=== PATIENT | female | born 1965 | race Caucasian/White ===

== ENCOUNTER 2017-09-28 06:10 | Day surgery (SDC) | payer OTHER ==
[2017-09-28] MEDS ORDERED: GLYCOPYRROLATE 0.4 MG INJ (07:00)
[2017-09-28] MEDS ORDERED: PROPOFOL 20 ML (07:14)
[2017-09-28] MEDS ORDERED: LIDOCAINE 1% (MDV) 20 ML INJ (07:15)
[2017-09-28 07:16] LABS: ADD MAN DIFF? NO
[2017-09-28] MEDS ORDERED: FENTAnyl 50 MCG/ML VIAL (07:17)
[2017-09-28] MEDS ORDERED: CEFAZOLIN 1 GM INJ (07:17)
[2017-09-28] MEDS ORDERED: ONDANSETRON 4 MG INJ (07:21)
[2017-09-28 07:25] LABS: WHITE BLOOD COUNT 6.5 10^3/ul (4.8-10.8)
[2017-09-28 07:25] LABS: BASOPHILS % 0.3 % (0.0-2.0); EOSINOPHILS # 0.1 10^3/ul (0.0-0.5); EOSINOPHILS % 1.5 % (0.0-7.0); HEMATOCRIT 40.2 % (37.0-47.0); LYMPHOCYTES # 2.6 10^3/ul (0.8-2.9); LYMPHOCYTES % 40.5 % (15.0-51.0); MEAN CORPUSCULAR HEMOGLOBIN 32.1 pg (29.0-33.0); MEAN CORPUSCULAR HGB CONC 34.8 g/dl (32.0-37.0); MEAN CORPUSCULAR VOLUME 92.2 fl (82.0-101.0); MEAN PLATELET VOLUME 9.9 fl (7.4-10.4); MONOCYTE # 0.6 10^3/ul (0.3-0.9); MONOCYTES % 9.5 % (0.0-11.0); NEUTROPHIL # 3.1 10^3/ul (1.6-7.5); PLATELET COUNT 286 10^3/UL (140-415); RED BLOOD COUNT 4.36 10^6/ul (4.20-5.40); RED CELL DISTRIBUTION WIDTH 11.8 % (11.5-14.5)
[2017-09-28] MEDS ORDERED: ROCURONIUM 50 MG INJ (07:29)
[2017-09-28] MEDS ORDERED: ONDANSETRON 4 MG INJ IV (07:30)
[2017-09-28] MEDS ORDERED: HYDROmorphONE (0.2 MG/ML) 10ML SYG IV ×2 (07:30)
[2017-09-28] MEDS ORDERED: FENTAnyl 50 MCG/ML VIAL IV (07:30)
[2017-09-28 07:42] LABS: ALANINE AMINOTRANSFERASE 42 IU/L (13-69); ALBUMIN 4.1 g/dl (3.3-4.9); ALKALINE PHOSPHATASE 104 IU/L (42-121); ANION GAP 13 (8-16); ASPARTATE AMINO TRANSFERASE 28 IU/L (15-46); BILIRUBIN,INDIRECT 0.3 mg/dl (0-1.1); BILIRUBIN,TOTAL 0.3 mg/dl (0.2-1.3); CARBON DIOXIDE 29 mmol/L (21-31); CHLORIDE 103 mmol/L (97-110); GLUCOSE 95 mg/dl (70-220); TOTAL PROTEIN 7.5 g/dl (6.1-8.1)
[2017-09-28 07:44] LABS: BLOOD UREA NITROGEN 13 mg/dl (7-20); CALCIUM 9.4 mg/dl (8.4-10.2); CREATININE 0.63 mg/dl (0.44-1.00); POTASSIUM 4.1 mmol/L (3.5-5.1); SODIUM 141 mmol/L (135-144)
[2017-09-28 07:55] LABS: INR 0.93; PARTIAL THROMBOPLASTIN TIME 28.3 Sec (25.0-35.0); PROTIME 12.6 Sec (11.9-14.9)
[2017-09-28] MEDS: BUPIVACAINE 0.5%/EPI (SDV) 30 ML INJ (09:11)
[2017-09-28] MEDS ORDERED: NEOSTIGMINE 3 MG/3 ML SYRINGE (09:14)
== END 2017-09-28 10:55 | disposition home or self-care (01) ==
LOC: SDS 06:10
DX: K60.3 Anal fistula (principal); K64.4 Residual hemorrhoidal skin tags; E03.9 Hypothyroidism, unspecified; E66.9 Obesity, unspecified; Z68.34 Body mass index [BMI] 34.0-34.9, adult
CPT/HCPCS: 46250; 71045; 80053; 84703; 85025; 85610; 85730; 88304; 93005